=== PATIENT | male | born 1950 | race Two or more races ===

== ENCOUNTER 2023-02-21 13:15 | Outpatient (CLI) | payer OTHER | END 2023-02-21 13:31 | disposition home or self-care (01) | LOC: LAB 13:15 | PROVIDERS: ATTEND Urology | DX: R97.20 Elevated prostate specific antigen [PSA] (principal) ==

== ENCOUNTER 2023-03-15 07:23 | Outpatient (CLI) | payer OTHER | END 2023-03-15 07:31 | disposition home or self-care (01) | LOC: SONOGRAMA 07:23 | PROVIDERS: ATTEND Urology | DX: C61 Malignant neoplasm of prostate (principal); D29.1 Benign neoplasm of prostate ==

== ENCOUNTER 2023-10-24 13:39 | Emergency (ER) | payer OTHER ==
[~2023-10-24] VITALS: Ht 165.1 cm; Wt 83.9 kg
[2023-10-24] MEDS ORDERED: LOSARTAN POTASS50 MG PO (14:14)
[2023-10-24] MEDS ORDERED: TAMS0.4C PO (14:14)
[2023-10-24] MEDS ORDERED: ATORVASTATIN CA20 MG PO (14:15)
[2023-10-24] MEDS ORDERED: KAPSPARGO SPRIN25 MG PO (14:15)
[2023-10-24 15:31] LABS: URINE APPEARANCE Clear; URINE BILIRRUBIN Negative (NEGATIVE); URINE BLOOD Negative; URINE COLOR Yellow; URINE GLUCOSE Negative (NEGATIVE); URINE LEUKOCYTE Negative; URINE NITRATE Negative; URINE PROTEIN Negative (NEGATIVE)
[2023-10-24 15:36] LABS: URINE EPITHELIAL CELLS 0.4 uL (0.0-38.8); URINE RBC 1.5 uL (0.0-20.8)
[2023-10-24 15:38] LABS: HEMATOCRIT 36.1 % (39.0-48.0); HEMOGLOBIN 12.3 g/dL (13-16.00); MEAN CELL VOLUME 92.9 fL (80.0-100.00); MEAN CORPUSCULAR HEMOGLOBIN 31.7 pg (27.00-32.0); MEAN CORPUSCULAR HGB CONC 34.1 g/dl (32.0-36.0); PLATELET COUNT 216 K/uL (150-450); RED BLOOD COUNT 3.88 M/uL (4.00-6.00); RED CELL DISTRIBUTION WIDTH 13.2 % (11.5-14.5)
[2023-10-24 18:15] LABS: ALBUMIN 3.8 gm/dL (3.4-5.0); BILIRUBIN TOTAL 0.63 mg/dL (0.3-1.2); CALCIUM 9.9 mg/dL (8.5-10.1); CREATININE SERUM 1.06 mg/dL (0.70-1.30); GFR 68.29; GLOBULINA 3.6 G/DL (2.4-3.5); POTASSIUM 4.6 mEq/L (3.5-5.1); TOTAL PROTEIN 7.4 gm/dL (6.4-8.2)
[2023-10-24] MEDS ORDERED: LEVOFLOXACIN750 MG PO (19:21)
[2023-10-24] MEDS ORDERED: KETO10TA2 PO (19:21)
== END 2023-10-24 19:36 | disposition home or self-care (01) ==
LOC: ER 13:40
PROVIDERS: Emergency Medicine; General Practice
DX: N50.811 Right testicular pain (principal); N50.89 Other specified disorders of the male genital organs; I10 Essential (primary) hypertension
CPT/HCPCS: 36415; 76870; 96365; 96372; 99284; J0696; J1885